=== PATIENT | male | born 1945 ===

== ENCOUNTER 2019-04-26 05:15 | Inpatient (IN) | payer MEDICARE ==
--- NOTE | 2019-04-26 05:27 | ED ---
Complex/Multi-Sys Presentation - HPI Summary HPI Summary: Patient is a 73 y/o M presenting via EMS from [facility] for concerns of sepsis. It is reported that the patient has been with AMS and was abnormally fidgety the evening of 04/25/19. At some point in the night, the patient got out of bed to go to the bathroom, experienced generalized weakness, and fell. During the fall, the patient had ruptured his colonostomy bag. Patient was brought to [place] and was noted to febrile. CT ABD/PEL was done. However, patient's lactic acid was 4.4, there were concerns for sepsis and the patient was transferred to [facility] for further workup. Ostomy change, indwelling catheter were done RESEARCH RN SPEC. However, the patient had no urine output. 1L IVF and Rocephin were administered RESEARCH RN SPEC as well. It is noted that the patient had recently been evaluated at [facility] for sepsis as well. Hx of lymphoma reported. Home medications and allergies are reviewed. - History Of Current Complaint Time Seen by Provider: 04/26/19 05:17 Hx Obtained From: Patient, EMS Onset/Duration: Still Present Timing: Constant Severity Currently: Severe Associated Signs And Symptoms: Positive: Fever - reported, on vitals, temp is 98.7 F, Other - positive - AMS, fidgety, generalized weakness, fall - Allergies/Home Medications Allergies/Adverse Reactions: Allergies Allergy/AdvReac Type Severity Reaction Status Date / Time No Known Allergies Allergy Verified 04/26/19 05:27 PMH/Surg Hx/FS Hx/Imm Hx Sensory History: Denies: Hx Legally Blind, Hx Deafness Opthamlomology History: Denies: Hx Legally Blind EENT History: Denies: Hx Deafness - Family History Known Family History: Negative: Blood Disorder - Social History Alcohol Use: None Substance Use Type: Reports: None Smoking Status (MU): Former Smoker Review of Systems Positive: Fever - reported, on vitals, temp is 98.7 F , Fatigue - generalized weakness Musculoskeletal: Other - positive - fall Neurological: Other - positive - AMS, acting fidgety All Other Systems Reviewed And Are Negative: Yes Physical Exam - Summary Physical Exam Summary: Appearance: Ill-appearing, Well-nourished, lying in bed comfortably Skin: Warm, dry, no obvious rash; There is some inflamed skin below colonostomy area. Eyes: sclera anicteric, no conjunctival pallor ENT: mucous membranes moist, pharynx appears normal Neck: Supple, nontender Respiratory: Clear to auscultation, no signs of respiratory distress Cardiovascular: Tachycardia on vitals; Normal S1, S2. No murmurs. Normal distal pulses in tibial and radial bilaterally. Abdomen: Colonostomy at LLQ; Soft, nontender, normal active bowel sounds present Musculoskeletal: Normal, Strength/ROM Intact Neurological: A&Ox3, awake and alert, seems a bit confused and slow to answer questions. Psychiatric: affect is normal, does not appear anxious or depressed Triage Information Reviewed: Yes Vital Signs Reviewed: Yes Procedures - Sedation Patient Received Moderate/Deep Sedation with Procedure: No Diagnostics - Laboratory Result Diagrams: 04/26/19 23:30 04/26/19 23:30 Lab Statement: Any lab studies that have been ordered have been reviewed, and results considered in the medical decision making process. Re-Evaluation - Re-Evaluation First Eval Re-Evaluation Time: 05:48 Comment: Nurse adjusted inflation of balloon in catheter. Urine output was subsequently obtained. Complex Multi-Symp Course/Dx Course Of Treatment: Patient is a 73 y/o M presenting via EMS from [facility] for concerns of sepsis. It is reported that the patient has been with AMS and was abnormally fidgety the evening of 04/25/19. At some point in the night , the patient got out of bed to go to the bathroom, experienced generalized weakness, and fell. During the fall, the patient had ruptured his colonostomy bag. Patient was brought to [place] and was noted to febrile. CT ABD/PEL was done. However, patient's lactic acid was 4.4, there were concerns for sepsis and the patient was transferred to [facility] for further workup. Ostomy change, indwelling catheter were done RESEARCH RN SPEC. However, the patient had no urine output. 1L IVF and Rocephin were administered RESEARCH RN SPEC as well. It is noted that the patient had recently been evaluated at [facility] for sepsis as well. Hx of lymphoma reported. On physical exam, patient is noted to be ill-appearing and tachycardic. He seems a bit confused and is slow to answer questions. There is a colonostomy bag at [facility] with some inflamed skin below. Patient's case was discussed with Dr. Feng, who accepts the patient for admission. - Diagnoses Provider Diagnoses: Sepsis - Physician Notifications Discussed Care Of Patient With: Reyes Feng Time Discussed With Above Provider: 05:27 Instructed by Provider To: Other - Patient's case was discussed with Dr. Feng , who accepts the patient for admission. Discharge ED - Sign-Out/Discharge Documenting (check all that apply): Patient Departure - admit - Discharge Plan Condition: Fair Disposition: ADMITTED TO [facility] - Billing Disposition and Condition Condition: FAIR Disposition: Admitted to [facility] - Attestation Statements Document Initiated by iH: Yes Documenting Scribe: RACHAEL GORDON Provider For Whom Hi is Documenting (Include Credential): ALANA DODSON MD Scribe Attestation: IRACHAEL, scribed for ALANA DODSON MD on 04/27/19 at 0522. Scribe Documentation Reviewed: Yes Provider Attestation: The documentation as recorded by the RACHAEL montenegro accurately reflects the service I personally performed and the decisions made by me, ALANA DODSON MD Status of Scribe Document: Viewed
[2019-04-26] MEDS ORDERED: Albuterol 2.5 MG/3 ML NEB.SOL* (0.083%) INH PRN (06:04)
[2019-04-26] MEDS ORDERED: Acetaminophen TAB* 325 MG PO PRN (06:04)
[2019-04-26] MEDS ORDERED: Ondansetron INJ* 2 MG/ML VIAL IV PRN (06:04)
[2019-04-26 06:05] LABS: Urine Appearance Cloudy; Urine Bilirubin Negative (Negative); Urine Blood 3+ (Negative); Urine Color Yellow; Urine Glucose Negative (Negative); Urine Ketones Negative (Negative); Urine Nitrite Positive (Negative); Urine Protein Negative (Negative); Urine Specific Gravity 1.009 (1.010-1.030); Urine Urobilinogen Negative (Negative)
[2019-04-26 06:19] LABS: Urine Bacteria 2+ (Absent); Urine Red Blood Cell 3+(>10/hpf) (Absent); Urine White Blood Cell 3+(>20/hpf) (Absent)
[2019-04-26] MEDS: NS 0.9% 1000 ML** 1,000 ML IV SCH ×2 (06:21→08:46)
[2019-04-26 06:27] LABS: Hematocrit 35 % (42-52); Hemoglobin 12.3 g/dL (14.0-18.0); Mean Corpuscular HGB Conc 35 g/dL (31-36); Mean Corpuscular Hemoglobin 36 pg (27-31); Mean Corpuscular Volume 103 fL (80-94); Red Blood Count 3.44 10^6 /uL (4.18-5.48); Red Cell Distribution Width 18 % (10-15); White Blood Count 6.2 10^3/uL (3.5-10.8)
[2019-04-26 06:34] LABS: BUN/Creatinine Ratio 22.4 (8-20); Calcium 7.8 mg/dL (8.6-10.3); EGFR African American 75.1 (>60); EGFR Non-African American 62.1 (>60); Magnesium 1.5 mg/dL (1.9-2.7); Potassium 3.7 mmol/L (3.5-5.0)
[2019-04-26 07:01] LABS: Influenza A Molecular NEGATIVE (Negative); Influenza B Molecular NEGATIVE (Negative)
[2019-04-26 07:04] LABS: ABS Lymphocytes 0.1 10^3/ul (1.0-4.8); Eosinophil % 0.1 %; Lymphocyte % 1.9 %; Mean Platelet Volume 7.2 fL (7.4-10.4); Platelet Count 93 10^3/uL (150-450)
[2019-04-26] MEDS: Enoxaparin(*) 40 MG/0.4 ML SYR SUBCUT SCH (08:58)
[2019-04-26] MEDS: Cefepime 1 GM in Dextrose(*) 1 GM/50 ML BAG IV SCH ×2 (09:01→20:40)
--- NOTE | 2019-04-26 09:44 | HP ---
ADMISSION HISTORY AND PHYSICAL: DATE OF ADMISSION: 04/26/19 PRIMARY CARE PROVIDER: None. HEALTHCARE PROXY: Emergency contact is Tigist Mitchell, , only other living relative is niece, Marga. CODE STATUS: Presumed full. SOURCE OF INFORMATION: History obtained from review of [place] records, discussion with the patient, discussion with Tigist. RELIABILITY: From the patient is poor, from Tigist is fair. CHIEF COMPLAINT: Loss of consciousness. HISTORY OF PRESENT ILLNESS: This is a 73-year-old man who was received in transfer as an ED transfer from [facility]. He had been having uncomfortable tossing and turning and woke and was sitting on the couch. While he was awake, Tigist woke up to go walk the dogs. When she came back, she found to have that he was not making sense. He was garbling his words. He stood up to use the bathroom and dropped and was unable to stand; it is unclear if he lost consciousness. At this point, she activated EMS. There was no tonic -clonic movements that were relayed to this author. The patient had a similar presentation prior to his hospital stay at [facility] from approximately April 06 to for 3 days stay when he again had shaking and fall. Tigist relates the diagnosis was sepsis from UTI as well as a concern for lymphoma. The physician at [facility] apparently wanted to keep him longer; however, this patient was intended on leaving. Tigist relates that he did not leave [facility] ultimately, but was discharged with ciprofloxacin and prednisone. She reports he finished his Cipro course. She is unclear if the prednisone has been finished. He has no follow up with Hematology or Oncology, but was set to have a new primary care physician visit. She reports that he had a Moore catheter placed at [facility]. Reports from the ED here indicate that he arrived at [facility] covered in urine, his Moore bag had displaced as well as his colostomy bag, which has been present for approximately 30 years. Tigist relates that at baseline he is quite active. He walks around town including to the post office and to the grocery store. He lives in a second floor apartment approximately 10 or 12 stairs, which he can ascend carrying groceries without difficulty. At [facility], he received a gram of ceftriaxone and 2 L of fluid prior to his transfer to [facility] ED. PAST MEDICAL HISTORY: Includes colon cancer, status post colectomy and unknown if he received radiation therapy or chemotherapy. Recent presumptive diagnosis of lymphoma, the patient indicated with his chest. Otherwise, denies all other medical history. MEDICATIONS: Prednisone 20 mg a day. ALLERGIES: No known drug allergies. FAMILY HISTORY: Unable to obtain. SOCIAL HISTORY: Quit tobacco at age 42, past alcohol; however, none in many years. He is retired. REVIEW OF SYSTEMS: The patient does indicate he has had a cough. Otherwise, difficult to obtain review of symptoms from the patient at this time. PHYSICAL EXAMINATION GENERAL: He is sitting 40 degrees in bed. He is in no distress, although breathing rapidly. VITAL SIGNS: At 4 a.m. at [facility], blood pressure 132/79, heart rate was 117, respiratory rate was 30 and requiring 6 L oxygen, T-max at 100.9. At [facility], 115/65, heart rate is 116, respiratory rate is 32, T-max 98.7, and 97% on 2 L nasal cannula at the time of my interview. HEENT: His oropharynx is clear. He has dry mucous membranes. Sclerae are anicteric. NECK: Non-elevated JVD. LUNGS: Clear. HEART: He has tachycardic heart rate. No murmurs. ABDOMEN: Soft, nontender, and nondistended. He has a colostomy in place. EXTREMITIES: Warm and well perfused. He has 1+ bilateral lower extremity edema at the ankles. His Moore catheter in place that was changed at [place] although not draining. NEUROLOGIC: At the time of presentation to [facility], he is dysarthric but oriented x3. He moves all extremities. Follows 2-step commands. Cranial nerves II through XII are intact. His sensation is intact. PSYCHIATRIC: He has no apparent anxiety, agitation or depression. DIAGNOSTIC STUDIES/LABORATORY DATA: Data reviewed: Impression, imaging from [place] CT abdomen and pelvis without contrast, impression limited evaluation of solid viscera for laceration without contrast. No hemoperitoneum. Bilateral hydronephrosis perhaps due to bladder outlet obstruction or occluded or clamped Moore catheter. Small pleural and pericardial effusions, splenomegaly, and gastric distention, cholelithiasis, and diverticulosis, bilateral moderate hydronephrosis and hydroureter with perirenal edema, gastric distention and partial colectomy of left mid christa-abdominal ostomy. Chest x-ray: Small right pleural effusion. EKG: Sinus tachycardia, normal axis, normal intervals, good R-wave progression, no ST or T wave changes. Labs reviewed: White blood cell count is 2.0, absolute neutrophils 1890, hemoglobin 13, platelets 107. BUN 24, creatinine 1.3, random glucose 114, lactic acid is 4.4, total bilirubin is 2.5, AST 19, ALT 17, alk phos 139, CK is 19, troponin 0.03, total protein is 2.5, albumin is 2.8. Rapid influenza reportedly obtained, but I see no report. Two sets of blood cultures were obtained in the [facility]. ASSESSMENT AND PLAN: A 73-year-old man with past medical history of remote colon cancer, presumptive diagnosis of lymphoma from unclear data from recent hospital stay at [facility], presenting after a fall, fever, tachycardia, leukopenia, and lactic acidosis, concerning for sepsis. 1. Sepsis. On presentation to [facility], Moore catheter was not draining. Balloon was deflated with brisk diuresis of several hundred milliliters. In conjunction with hydronephrosis and bladder distention, I suspect Moore catheter became nonfunctional leading to urinary tract infection as primary source. Urinalysis is pending at this time. Additionally, recheck influenza given endemic nature as well as fever. Multiple other etiologies and CAT scan including pleural effusions, pericardial effusions as potential source seem less likely. Two sets of blood cultures received at [place], pending growth. Received 2 L of fluid prior to [facility] arrival, 2 additional fluids of 500 cc per hour. Recheck lactic acid at 7 a.m. He was on 20 mg of prednisone at least since the 09 of April, I will continue 20, not hypotensive. We will not increase for stress dose steroids. Change ceftriaxone to cefepime, treating his neutropenic fever, although he is not frankly neutropenic at this time, although he is on steroids. 2. Acute kidney injury, unclear if acute or chronic. I suspect in the setting of dislodged Moore. Fluids as indicated above. Moore now draining. Repeat. 3. Hydronephrosis. Moore nonfunctional, likely will need re-imaging. Check resolution. 4. Lymphoma, pending records from [facility], which we have requested. Additionally, Tigist, his partner if able to obtain or arrive to [facility] will bring our records, which she has already obtained from discharge in preparation for PCP visit. I have not placed a consult at this time for Oncology. 5. DVT prophylaxis. Placed on Lovenox, not currently thrombocytopenic, but careful attention to platelet count. Followup today BMP and CBC, urinalysis, rapid influenza, magnesium all ordered and pending at the time of this dictation. [id number]/[facility] #: [id number] [facility]ALKatie
--- NOTE | 2019-04-26 14:53 | PN ---
Hospitalist Progress Note Date of Service: 04/26/19 Seen and evaluated at bedside.Just admitted a few hours earlier by Dr Feng. Pl see his note for full details. Pt doing better on the floor. Denies any complaints.In no distress. Will follow for any issues.
[2019-04-26 23:38] LABS: ABS Basophils 0.1 10^3/ul (0-0.2); ABS Lymphocytes 0.4 10^3/ul (1.0-4.8); ABS Monocytes 0.2 10^3/ul (0-0.8); ABS Neutrophils 6.3 10^3/ul (1.5-7.7); Eosinophil % 0.3 %; Hematocrit 30 % (42-52); Hemoglobin 10.1 g/dL (14.0-18.0); Lymphocyte % 5.2 %; Mean Corpuscular HGB Conc 34 g/dL (31-36); Mean Corpuscular Hemoglobin 34 pg (27-31); Mean Corpuscular Volume 102 fL (80-94); Mean Platelet Volume 6.7 fL (7.4-10.4); Platelet Count 68 10^3/uL (150-450); Red Blood Count 2.93 10^6 /uL (4.18-5.48); Red Cell Distribution Width 18 % (10-15); White Blood Count 6.9 10^3/uL (3.5-10.8)
[2019-04-26 23:51] LABS: BUN/Creatinine Ratio 23.2 (8-20); Calcium 7.7 mg/dL (8.6-10.3); EGFR African American 90.2 (>60); EGFR Non-African American 74.5 (>60); Potassium 4.1 mmol/L (3.5-5.0)
[2019-04-27] MEDS: Enoxaparin(*) 40 MG/0.4 ML SYR SUBCUT SCH (08:40)
[2019-04-27] MEDS ORDERED: cefTRIAXone(*) 2 GM in NS 0.9% 100 ML* 100 ML IVPB SCH (09:00)
[2019-04-27] MEDS ORDERED: Vancomycin per Pharmacy* NOTE FOLLOW UP PRN (13:49)
[2019-04-27] MEDS ORDERED: Vancomycin(*) 1,250 MG in NS 0.9% 250 ML* 250 ML IVPB ONE (18:00)
--- NOTE | 2019-04-27 18:21 | PN ---
Subjective Date of Service: 04/27/19 Interval History: Pr reports feeling better.Less weak. Blood cultures positive Objective Active Medications: Acetaminophen (Tylenol Tab*) 650 mg PO Q4H PRN PRN Reason: MILD PAIN or TEMP > 100.4 Last Admin: 04/26/19 12:36 Dose: 650 mg Albuterol (Ventolin 2.5 Mg/3 Ml Neb.Niecy*) 2.5 mg INH RT.[id number] AWAKE PRN PRN Reason: sob/wheezing Enoxaparin Sodium (Lovenox(*)) 40 mg SUBCUT Q24H [facility] Last Admin: 04/27/19 08:40 Dose: 40 mg Vancomycin HCl 1,250 mg/ (Sodium Chloride) 250 mls @ 166.667 mls/hr IVPB ONCE ONE Stop: 04/27/19 19:29 Last Admin: 04/27/19 18:09 Dose: 166.667 mls/hr Ondansetron HCl (Zofran Inj*) 4 mg IV Q4H PRN PRN Reason: NAUSEA/VOMITING Pharmacy Consult (Vancomycin Per Pharmacy*) 1 note FOLLOW UP . PRN PRN Reason: PER PROTOCOL Prednisone (Deltasone 20 Mg Tab) 20 mg PO DAILY [facility] Last Admin: 04/27/19 08:41 Dose: 20 mg Vital Signs - 8 hr 04/27/19 04/27/19 11:46 15:07 Temperature 98.4 F 98.8 F Pulse Rate 91 97 Respiratory 20 20 Rate Blood Pressure 113/56 125/61 (mmHg) O2 Sat by Pulse 94 94 Oximetry Oxygen Devices in Use Now: Nasal Cannula Eyes: No Scleral Icterus Ears/Nose/Mouth/Throat: NL Teeth, Lips, Gums Neck: NL Appearance and Movements; NL JVP Respiratory: Symmetrical Chest Expansion and Respiratory Effort Abdominal: NL Sounds; No Tenderness; No Distention, - - ostomy with stool Extremities: No Edema Neurological: Alert and Oriented x 3 Result Diagrams: 04/26/19 23:30 04/26/19 23:30 Microbiology and Other Data: Microbiology 04/26/19 05:57 Urine Culture - Final Urine Assess/Plan/Problems-Billing Assessment: - Patient Problems (1) Sepsis Current Visit: Yes Status: Acute Comment: Was transferred from [facility] Lactate 4.4 there Recd IVF Initially on Ceftriaxone for UTI Pl see Dr Feng h and p Blood culture per pharmacy gram pos cocci poss enteroccus.Checked with micro as well.And growing gram pos cocci eventhough not reported on computer. Started on Vanco today and ceftriaxone stopped for now Further antibiotics based on cx Likely uti as source if confirmed enteroccus (2) UTI (urinary tract infection) Current Visit: Yes Status: Acute Comment: in the setting of non functioning son currently working Bilateral hydronephrosis moderate from bladder outlet obs or clamped son noted on CT abd pelvis done at [facility]. will repeat renal ultrasound to evaluate further for improvement Renal fx improved (3) Hydronephrosis Current Visit: Yes Status: Acute Code(s): N13.30 - UNSPECIFIED HYDRONEPHROSIS SNOMED Code(s): 08901521 Comment: Pl see above (4) Lymphoma Current Visit: Yes Status: Acute Comment: h/o colon ca and colostomy and lymphoma per pt on prednisone 20 mg at home so continued d/w oncology on prednisone plan and further input on the lymphoma as pt not able to provide more information Status and Disposition: pt/ot
[2019-04-28 05:32] LABS: ABS Lymphocytes 0.7 10^3/ul (1.0-4.8); ABS Monocytes 0.3 10^3/ul (0-0.8); ABS Neutrophils 6.1 10^3/ul (1.5-7.7); Eosinophil % 0.2 %; Hematocrit 31 % (42-52); Hemoglobin 10.7 g/dL (14.0-18.0); Lymphocyte % 9.3 %; Mean Corpuscular HGB Conc 35 g/dL (31-36); Mean Corpuscular Hemoglobin 35 pg (27-31); Mean Corpuscular Volume 99 fL (80-94); Mean Platelet Volume 7.8 fL (7.4-10.4); Platelet Count 72 10^3/uL (150-450); Red Blood Count 3.09 10^6 /uL (4.18-5.48); Red Cell Distribution Width 17 % (10-15); White Blood Count 7.1 10^3/uL (3.5-10.8)
[2019-04-28 05:46] LABS: BUN/Creatinine Ratio 28.8 (8-20); Calcium 8.2 mg/dL (8.6-10.3); Magnesium 1.8 mg/dL (1.9-2.7)
[2019-04-28] MEDS: Vancomycin(*) 1,250 MG in NS 0.9% 250 ML* 250 ML IVPB SCH ×2 (05:47→19:41)
[2019-04-28] MEDS: Enoxaparin(*) 40 MG/0.4 ML SYR SUBCUT SCH (07:21)
[2019-04-28] MEDS ORDERED: Anidulafungin* 200 MG in NS 0.9% 250 ML* 200 ML IVPB ONE (12:00)
--- NOTE | 2019-04-28 13:18 | CONS ---
CONSULTATION REPORT: DATE OF CONSULT: 04/28/19 REQUESTING PHYSICIAN: Patsy Cameron. CONSULTING SERVICE: Infectious Disease. REASON FOR CONSULTATION: Bacteremia. IMPRESSION: 1. Enterococcus faecium in 3 of 4 blood culture bottles drawn in the setting of fever and encephalopathy. His mental status is improving, he is afebrile on vancomycin. He has no peripheral stigmata of infective endocarditis. He does have a chronic Moore catheter, which was apparently dysfunctional for some time leading up to his admission this could be a urinary source despite it not being present currently in the urine. To be fair the report is mixed trip, so it could include Enterococcus faecium and joy. He is improving on vancomycin. It is Enterococcus faecium, which can be resistant to vancomycin, however, as he is getting better we will continue the same antibiotic. 2. Joy krusei in 1 of 4 blood culture bottles. No other focal signs or symptoms including no spine or joint symptoms, no vision changes or eye pain or abnormalities on eye exam today. I think endophthalmitis unlikely. Endocarditis a consideration, original source may be urinary as well. 3. Staph epidermidis in 1 of 4 blood culture bottles is more likely a contaminant. 4. Recent corticosteroid use. 5. Some discussion of a lymphoma diagnosis, which he is unable to confirm or deny. 6. We will check a chest x-ray. RECOMMENDATION: Continue vancomycin goal trough 15 to 20. We will add anidulafungin 200 mg now and then 100 mg daily. We will repeat the blood cultures tomorrow. We will obtain a transthoracic echocardiogram. If that is unremarkable, we will obtain a CT of the abdomen and pelvis. Obtain records of his recent hospitalizations at [facility]. HISTORY OF PRESENT ILLNESS: This is a 73-year-old male with recent hospitalization at [facility] for fever and infection. Discharged from there with a Moore catheter and ciprofloxacin. Apparently at some point after finishing the Cipro, he started to feel poorly again and developed more fevers. He was brought to the [facility] ER on 04/26/19 with fever and change in mental status. Blood cultures taken there are now 3 of 4 growing Enterococcus faecium, 1 of 4 growing Staph epidermidis, 1 of 4 growing Joy krusei. His urine culture here was listed as mixed trip, which we will ask the micro lab to workup. He has been on vancomycin here. He is afebrile. He is becoming more lucid and in fact is able to provide some history, which includes a recent prednisone use though he is not sure why he is taking it and is unclear of any lymphoma diagnosis, which has been listed in his records. His other studies here have included a normal white count; a macrocytic anemia; elevated lactic acid, which is improving; urinalysis showing blood, nitrites, leukocyte esterase; influenza PCR negative. He had a dysfunctional Moore. I removed Moore and have that replaced at some point as he travels here. PAST MEDICAL HISTORY: 1. Colon cancer treated with colectomy, colostomy, and chemotherapy in the distant past. 2. Possible diagnosis lymphoma. MEDICATIONS: 1. Taking prednisone 20 mg a day at home. 2. Tylenol as needed. 3. Enoxaparin. 4. Vancomycin 1250 mg every 12 hours. 5. Prednisone 20 mg daily. ALLERGIES: No known drug allergies. FAMILY HISTORY: No recurrent infections. SOCIAL HISTORY: Lives in [place] with his . No travel. No sick contacts. He had been at [facility] about 3 weeks ago for a couple of days. He is a past smoker, lives with his , retired concrete truck driver. REVIEW OF SYSTEMS: All negative except as noted above to 14 point review of systems. PHYSICAL EXAM: Vital Signs: Temperature 36.6, heart rate 80, respiration rate 18, blood pressure 160/75, oxygen saturation 97% on room air. In general, he is awake and nondistressed. Neurologic: He is oriented x3. He follows all commands, answers questions, probably moves all extremities. HEENT: There is no conjunctival hemorrhage. Oropharynx without lesions. He is edentulous. Neck is supple without mass. Heart is regular rate and rhythm without murmurs, rubs, or gallops. Lungs are clear to auscultation bilaterally. Abdomen: Soft , nontender, nondistended. There is no right upper quadrant tenderness. There is some suprapubic tenderness to palpation. There is bowel sounds present. Skin: There is no rash or splinter hemorrhage. Musculoskeletal: There is no spine tenderness to palpation or joint synovitis. : There is Moore catheter present. Lymph Nodes: There is no cervical, supraclavicular, or inguinal axillary or epitrochlear lymphadenopathy. DIAGNOSTIC STUDIES/LAB DATA: Influenza PCR negative. White blood cell count 7, hemoglobin 10, platelets 72, MCV 99 down from 103, creatinine is 0.6. Please see impressions recommendations outlined above that is discussed with Dr. Cameron. Thank you for asking me to see Mr. Chris in consultation. [id number]/[facility] #: [id number] MTDD
--- NOTE | 2019-04-28 14:59 | PN ---
Subjective Date of Service: 04/28/19 Interval History: HOSPITALIST PROGRESS NOTE Patient seen and examined at bedside. Care reviewed and d/w Lindsey Ricardo RN. He offers no complaints today. Feels stronger and worked with PT. Family History: Unchanged from Admission Social History: Unchanged from Admission Past Medical History: Unchanged from Admission Objective Active Medications: Acetaminophen (Tylenol Tab*) 650 mg PO Q4H PRN PRN Reason: MILD PAIN or TEMP > 100.4 Last Admin: 04/26/19 12:36 Dose: 650 mg Albuterol (Ventolin 2.5 Mg/3 Ml Neb.Niecy*) 2.5 mg INH [id number] AWAKE PRN PRN Reason: sob/wheezing Enoxaparin Sodium (Lovenox(*)) 40 mg SUBCUT Q24H [facility] Last Admin: 04/28/19 07:21 Dose: 40 mg Vancomycin HCl 1,250 mg/ (Sodium Chloride) 250 mls @ 166.667 mls/hr IVPB Q12H [facility] Last Admin: 04/28/19 05:47 Dose: 166.667 mls/hr Anidulafungin 200 mg/ Sodium (Chloride) 260 mls @ 65 mls/hr IVPB .LOADING DOSE x 1 ONE Stop: 04/28/19 15:59 Last Admin: 04/28/19 12:07 Dose: 65 mls/hr Anidulafungin 100 mg/ Sodium (Chloride) 130 mls @ 65 mls/hr IVPB Q24H [facility] Ondansetron HCl (Zofran Inj*) 4 mg IV Q4H PRN PRN Reason: NAUSEA/VOMITING Pharmacy Consult (Vancomycin Per Pharmacy*) 1 note FOLLOW UP . PRN PRN Reason: PER PROTOCOL Pharmacy Profile Note (Vancomycin Trough Check) 1 note FOLLOW UP 0530 ONE Stop: 04/29/19 05:31 Prednisone (Deltasone 20 Mg Tab) 20 mg PO DAILY [facility] Last Admin: 04/28/19 07:21 Dose: 20 mg Vital Signs - 8 hr 04/28/19 04/28/19 04/28/19 07:21 07:30 11:07 Temperature 97.3 F 97.9 F Pulse Rate 80 81 Respiratory 18 18 18 Rate Blood Pressure 160/90 159/75 (mmHg) O2 Sat by Pulse 100 97 Oximetry Appearance: Elderly gentleman sitting up in a chair in NAD Eyes: No Scleral Icterus Ears/Nose/Mouth/Throat: Mucous Membranes Moist Neck: Trachea Midline Respiratory: Symmetrical Chest Expansion and Respiratory Effort, Clear to Auscultation Cardiovascular: RRR - Normal S1 and S2 Abdominal: NL Sounds; No Tenderness; No Distention Neurological: Alert and Oriented x 3, NL Muscle Strength and Tone Result Diagrams: 04/28/19 05:10 04/28/19 05:10 Assess/Plan/Problems-Billing Assessment: Mr Chris is a 73yo M with PMH of colon CA s/p colectomy, possible lymphoma, who was transferred from [facility] for sepsis secondary to UTI. - Patient Problems (1) UTI (urinary tract infection) Comment: - In the setting of non functioning son. - Bilateral hydronephrosis moderate from obstruction. - Urine culture grew enterococcus. - Continue Vancomycin. - F/u US shows resolution of hydronephrosis. (2) Bacteremia Comment: - Blood cultures grew Enterococcus (associated with UTI), staph epi ( likely contaminant), and now Joy crusei - ID consult requested. (3) Lymphoma Comment: - Continue prednisone. - Awaiting records from [facility]. (4) DVT prophylaxis Comment: - Lovenox. (5) Full code status Status and Disposition: Inpatient.
--- NOTE | 2019-04-28 17:23 | ECHO ---
*[facility]* [place] [address] Fax #: [phone] Transthoracic Echocardiogram Patient: Obey Chris : 1945 Study Date: 04/28/2019 Age: 73 Gender: M HR: 90 bpm Height: 70 in /177.8 cm BSA: 1.95 m^2 Weight: 169.6 lb /77.1 kg BMI: 24.4 kg/m^2 *Steward/Stewardess Second Class: * Ana Lo [facility] *Referring Physician: * Alfonzo Green *Reading Physician: * Fay Billy MD Indications: Bacteremia. History: Lymphoma. Conclusions Summary: - Left ventricle: The cavity size is below normal. Wall thickness is mildly increased. Systolic function is hyperdynamic. The estimated ejection fraction is 60-65%. - Right ventricle: The cavity size is normal. Wall thickness is mildly increased. Systolic function is low normal. - Mitral valve: The leaflets are mildly thickened, shaggy looking but not clear vegetations, anterior leaflet appears mildly tethered. There is mild regurgitation. - Aortic valve: The valve is trileaflet. The leaflets are mildly thickened. Mild focal calcification involving the noncoronary cusp measuring at 0.4 cm by 0.3 cm. - Tricuspid valve: There is mild-moderate regurgitation. - Pericardium, extracardiac: A trace pericardial effusion is identified posterior to the heart and along the left ventricular free wall. The fluid has no internal echoes. There is no evidence of hemodynamic compromise. - Pulmonary arteries: Systolic pressure is mildly increased. The peak pressure during systole by Doppler is 41.0 mm Hg. - No prior echocardiogram to compare. Recommendations: No clear vegetations, aortic nodule smooth, mitral valve could be sclerosis or vegetation, not optimally seen. Recommend transesophageal echocardiogram if clinically indicated to better image valves for possible endocarditis. Study data: Transthoracic echocardiogram. Procedure: Transthoracic echocardiography was performed. Image quality was fair. Complete 2D, spectral Doppler, and color flow Doppler. Location: Bedside. Patient status: Inpatient. Patient room number: 404. Rhythm: Normal sinus rhythm. Findings Left ventricle: The cavity size is below normal. Wall thickness is mildly increased. Systolic function is hyperdynamic. The estimated ejection fraction is 60-65%. Wall motion is normal; there are no regional wall motion abnormalities. Features are consistent with a pseudonormal left ventricular filling pattern, with concomitant abnormal relaxation and increased filling pressure (grade 2 diastolic dysfunction). Right ventricle: The cavity size is normal. Wall thickness is mildly increased. Systolic function is low normal. Systolic pressure is mildly increased. Left atrium: The atrium is normal in size. Right atrium: The atrium is mildly dilated. Mitral valve: The leaflets are mildly thickened, shaggy looking but not clear vegetations, anterior leaflet appears mildly tethered. There is no evidence of stenosis. There is mild regurgitation. Aortic valve: The valve is trileaflet. The leaflets are mildly thickened. Mild focal calcification involving the noncoronary cusp measuring at 0.4 cm by 0.3 cm. There is no evidence of stenosis. There is no significant regurgitation. Tricuspid valve: The leaflets are normal thickness. There is no evidence of a vegetation. There is no evidence of stenosis. There is mild-moderate regurgitation. Pulmonic valve: The leaflets are normal thickness. There is no evidence of a vegetation. There is no evidence of stenosis. There is trace regurgitation. Aorta: Aortic root: The aortic root is mildly dilated. Ascending aorta: The ascending aorta is appears normal. Aortic arch: The aortic arch is poorly visualized. Pericardium: A trace pericardial effusion is identified posterior to the heart and along the left ventricular free wall. There is no evidence of hemodynamic compromise. Measuring at 0 .4 cm at the papillary level in parasternal short axis, 0.6cm adjacent to the inferolateral wall in apical long axis view, and 0.4cm posterior to left ventricle in subcostal four chamber view. Respiration variations are as follows: Mitral valve 25%, left ventricular outflow tract 1%, and tricuspid valve 3%. Pulmonary arteries: The main pulmonary artery is normal-sized. Systolic pressure is mildly increased. Systemic veins: Inferior vena cava: The vessel is normal in size. There is (>= 50%) respiratory change in the IVC dimension. Measurements Left ventricle Value Ref Right atrium continued Value Ref ALEXANDER, LAX (L) 4.1 cm 4.2 - 5.8 SI dim, ES, A4C (H) 5.6 cm 3.4 - 5.3 ESD, LAX (L) 2.3 cm 2.5 - 4.0 Estimated RAP 3 mm Hg --------- FS, LAX (H) 51 % 25 - 43 PW, ED, LAX (H) 1.1 cm 0.6 - 1.0 Aortic valve Value Ref FS (H) 51 % 25 - 43 Ese diam, ED 2.4 cm --------- PW, ED (H) 1.1 cm 0.6 - 1.0 Peak v, S 1.2 m/sec --------- PW/ID, ED 0.23 VTI, S 29.3 cm --------- E', lat ese, TDI (L) 8.1 cm/sec >=10.0 Mean grad, S 4.0 mm Hg -- ------- E/e', lat ese, 10 Peak grad, S 5.0 mm Hg ----- ---- TDI LVOT/AV, VTI ratio 0.75 --------- E', med ese, TDI (L) 6.5 cm/sec >=7.0 E/e', med ese, 12 Mitral valve Value Ref TDI Peak E 0.79 m/sec --------- E', avg, TDI 7.3 cm/sec Peak A 0.6 m/sec ----- ---- E/e', avg, TDI 11 <=14 Decel time 130 ms -- ------- Peak grad, D 2.5 mm Hg --------- LVOT Value Ref Peak E/A ratio 1.3 --------- Peak kory, S 0.98 m/sec VTI, S 22.0 cm Pulmonic valve Value Ref Mean grad, S 2 mm Hg Peak v, S 0.91 m/sec --------- Peak grad, S 3.0 mm Hg --------- Ventricular septum Value Ref IVS, ED (H) 1.1 cm 0.6 - 1.0 Tricuspid valve Value Ref TR peak v (H) 3.21 m/sec <=2.8 Right ventricle Value Ref Peak RV-RA grad, S 41 mm Hg --------- AW thickness, ED (H) 0.6 cm 0.1 - 0.5 ALEXANDER, LAX 3.4 cm Aortic root Value Ref ALEXANDER minor ax, A4C 3.1 cm 1.9 - 3.5 Root diam 3.8 cm <4.1 mid Pressure, S 44 mm Hg Ascending aorta Value Ref AAo AP diam, S 3.5 cm --------- Left atrium Value Ref AP dim, ES 3.20 cm 3.00 - Pulmonary artery Value Ref 4.00 Pressure, S 41.0 mm Hg --------- ML dim, A4C 4.3 cm SI dim, A4C 4.9 cm Inferior vena cava Value Ref Vol/bsa, ES, 1-p 21 ml/m^2 12 - 37 Diam 1.1 cm --------- A4C Vol/bsa, ES, A/L 31 ml/m^2 16 - 34 Right atrium Value Ref SI dim, ES (H) 5.6 cm 3.4 - 5.3 ML dim, ES, A4C 4.0 cm 2.6 - 4.4 Legend: (L) and (H) domenica values outside specified reference range. Prepared and electronically signed by Fay Billy MD 04/28/2019 17:23
[2019-04-29] MEDS ORDERED: amLODIPine TAB* 5 MG PO ONE ×2 (04:01→18:28)
[2019-04-29] MEDS ORDERED: Vancomycin Trough Check NOTE FOLLOW UP ONE (05:30)
[2019-04-29] MEDS: Vancomycin(*) 1,250 MG in NS 0.9% 250 ML* 250 ML IVPB SCH (06:22)
[2019-04-29] MEDS: Enoxaparin(*) 40 MG/0.4 ML SYR SUBCUT SCH (08:06)
--- NOTE | 2019-04-29 08:52 | PN ---
Progress Note - Progress Note Date of Service: 04/29/19 SOAP: Subjective: CC: bacteremia HPI: 73 year old man with son catheter and Enteroccocal bacteremia and Candidemia. No fever, rash, or diarrhea. Appetite is good. He feels ok. Says he is leaving. Objective: Vital Signs Temp 36.6 C 04/29/19 02:55 Pulse 77 04/29/19 02:55 Resp 16 04/29/19 02:55 BP 178/82 04/29/19 02:55 Pulse Ox 98 04/29/19 02:55 Intake & Output 04/28/19 04/29/19 04/29/19 18:59 06:59 18:59 Intake Total 756 406 240 Output Total 1925 2200 Balance -1169 -1794 240 Intake: IV Fluids 40 NS 40 IVPB 366 ABX - VANCOMYCIN 266 antifungal 100 Oral 756 0 240 Output: Urine 1200 Son 1800 1000 Colostomy 125 Other: # Bowel Movements 0 Gen:awake, no distress Neuro: alert, oriented x3, moves all extremities HEENT: no thrush Heart:Regular, no murmur Lungs:CTA BL Abd:+BS NTND soft Skin: no rash MSK: no spine tenderness or joint synovitis Laboratory Results - last 24 hr 04/29/19 04:53 Vancomycin Trough 14.3 Microbiology 04/26/19 05:57 Urine Culture - Final Urine Assessment: 1. E. faecium bacteremia; micro reports it is VRE, TTE showed abnormal MV with MR, infectious endocarditis not ruled out, otherwise no clear focus. 2. Candidemia; no visual symptoms or other focal abnormality. Polymicrobial bnormality could be related to chronic son catheter dysfunction, but may also have seeded 3. chronic corticosteroid use 4. chronic son catheter Plan: 1. Stop vancomycin, start linezolid 600 mg IV Q12hrs 2. continue anidulafungin 100 mg IV daily 3. STACEY and CT A/P; I discussed this with him and he refuses further testing, plans to leave, understands my concern that he could have a life threatening infection that needs further evaluation. Will check back in with him and Dr Cameron. 35 minutes floor time >50% face to face in counseling regarding need for further testing for invasive infection
[2019-04-29] MEDS: Linezolid 600 MG IVPREMIX(*) 600 MG/300 ML BAG IVPB SCH ×2 (10:38→21:39)
[2019-04-29] MEDS: Anidulafungin* 100 MG in NS 0.9% 100 ML* 100 ML IVPB SCH (13:07)
--- NOTE | 2019-04-29 14:19 | PN ---
Subjective Date of Service: 04/29/19 Interval History: HOSPITALIST PROGRESS NOTE Patient seen and examined at bedside. Care reviewed and d/w Weston Mathis RN. He feels better today. Upset he was told he needs more testing and treatment. Family History: Unchanged from Admission Social History: Unchanged from Admission Past Medical History: Unchanged from Admission Objective Active Medications: Acetaminophen (Tylenol Tab*) 650 mg PO Q4H PRN PRN Reason: MILD PAIN or TEMP > 100.4 Last Admin: 04/26/19 12:36 Dose: 650 mg Albuterol (Ventolin 2.5 Mg/3 Ml Neb.Niecy*) 2.5 mg INH [id number] AWAKE PRN PRN Reason: sob/wheezing Enoxaparin Sodium (Lovenox(*)) 40 mg SUBCUT Q24H [facility] Last Admin: 04/29/19 08:06 Dose: 40 mg Anidulafungin 100 mg/ Sodium (Chloride) 130 mls @ 65 mls/hr IVPB Q24H [facility] Last Admin: 04/29/19 13:07 Dose: 65 mls/hr Linezolid (Zyvox 600 Mg Ivpremix(*)) 600 mg in 300 mls @ 300 mls/hr IVPB Q12H [facility] Last Admin: 04/29/19 10:38 Dose: 300 mls/hr Ondansetron HCl (Zofran Inj*) 4 mg IV Q4H PRN PRN Reason: NAUSEA/VOMITING Prednisone (Deltasone 20 Mg Tab) 20 mg PO DAILY [facility] Last Admin: 04/29/19 08:06 Dose: 20 mg Vital Signs - 8 hr 04/29/19 04/29/19 04/29/19 07:16 08:00 10:45 Temperature 97.4 F 97.8 F Pulse Rate 72 84 Respiratory 19 19 22 Rate Blood Pressure 163/67 150/70 (mmHg) O2 Sat by Pulse 97 98 Oximetry Oxygen Devices in Use Now: None Appearance: Elderly gentleman sitting up in a chair in NAD Eyes: No Scleral Icterus Ears/Nose/Mouth/Throat: Mucous Membranes Moist Neck: Trachea Midline Respiratory: Symmetrical Chest Expansion and Respiratory Effort, Clear to Auscultation Cardiovascular: RRR - Normal S1 and S2 Abdominal: NL Sounds; No Tenderness; No Distention, - - Ostomy in place Neurological: Alert and Oriented x 3, NL Muscle Strength and Tone Result Diagrams: 04/28/19 05:10 04/28/19 05:10 Assess/Plan/Problems-Billing Assessment: Mr Chris is a 73yo M with PMH of colon CA s/p colectomy, possible lymphoma, who was transferred from [facility] for sepsis secondary to UTI. Records from [facility] reviewed: patient was admitted from 04/06 - 04/10/19 with septic shock with urinary retention and UTI. He was also found to have a 1.5cm lung nodule and a mediastinal mass. He was also found to have complete phimosis and required Urology consultation for Son placement. CT chest/abdome showed a 7.9 x 3.1 x 4.7cm encasing mass anterior and middle mediastinal area, splenomegaly, retroperitoneal lymphadenopathy. 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 Patient refused biopsy and left the hospital. He was discharged with Cipro and prednisone to follow up as outpatient with Oncology. - Patient Problems (1) UTI (urinary tract infection) Comment: - In the setting of non functioning son. - Moderate bilateral hydronephrosis from obstruction. - Urine culture grew VRE. - ID in put appreciated - start Linezolid. - F/u US shows resolution of hydronephrosis. (2) Bacteremia Comment: - Blood cultures grew Enterococcus (associated with UTI), staph epi ( likely contaminant), and now Joy crusei - ID consult appreciated. - Echo shows thickened MV, but no definite vegetations - patient initially refused STACEY, but now agreeable. - Continue Linezolide and Anidulafungin. (3) Lymphoma Comment: - Continue prednisone. (4) DVT prophylaxis Comment: - Lovenox. (5) Full code status Status and Disposition: Inpatient.
[2019-04-29] MEDS ORDERED: Naloxone* 0.4 MG/ML 1 ML VIAL ONE (15:24)
[2019-04-29] MEDS ORDERED: Midazolam* 1 MG/ML 5 ML VIAL (5 MG) ONE (15:24)
[2019-04-29] MEDS ORDERED: fentaNYL* 50 MCG/ML 2 ML VIAL (100 MCG VIAL) ONE (15:24)
[2019-04-29] MEDS ORDERED: Flumazenil* 0.1 MG/ML 5 ML MDV ONE (15:25)
[2019-04-29] MEDS ORDERED: Lidocaine 2% VISCOUS* 15 ML UDC ONE (15:25)
--- NOTE | 2019-04-29 17:13 | TEE ---
*[facility]* [place] [address] Fax #: [phone] Transesophageal Echocardiogram Patient: Obey Chris : 1945 Study Date: 04/29/2019 Age: 73 Gender: M HR: 83 bpm Height: 70 in /177.8 cm BSA: 1.95 m^2 Weight: 169.6 lb /77.1 kg BMI: 24.4 kg/m^2 *Commercial Credit Analyst: * Asha Ernst RDCS RN *Referring Physician: * Esha ValderramaReading Physician: * Power Chambers MD Indications: Bacteremia. History: Lymphoma. Risk factors: Former tobacco use. Conclusions Summary: - Left ventricle: The cavity size is normal. Systolic function is normal. - Right ventricle: The cavity size is normal. Systolic function is normal. - Tricuspid valve: There is mild-moderate regurgitation. - Ascending aorta: There is severe atherosclerotic plaque seen in the visualized segments of the aortic arch and descending aorta with some plaque projecting into the lumen 0.8 cm. - Pericardium, extracardiac: There is no significant pericardial effusion. - Pulmonary arteries: Systolic pressure is mildly increased, estimated to be 46 mm Hg. - No echocardiogram evidence of endocarditis. Recommendations: No prior STACEY's available for comparison at time of interpretation. Study data: Diagnostic Transesophageal Echocardiogram Consent: The risks and benefits of the procedure, including alternatives were discussed with the patient and/or their health care electronics parts sales representative and written informed consent was obtained. Procedure: Initial setup: The patient was brought to the laboratory in the fasting state.Intravenous access was obtained. Surface ECG leads, heart rate, heart rhythm, blood pressure measurements, pulse oximetric signals, and mainstream end-tidal CO2 tracings were monitored throughout the procedure. Sedation. Moderate sedation was administered by nursing staff. History and physical as well as labs were reviewed. An oral bite block was inserted for protection of oral dentition. The patient was placed in the left lateral decubitus position. Topical anesthesia was obtained using viscous lidocaine. A transesophageal probe was inserted by the attending trashman without difficulty. Transesophageal echocardiography was performed. The image quality was fair to good, with the best imaging from the transgastric window. All standard views were attempted within the limitations of patient tolerance and safety. Multiple 2D, color flow Doppler and spectral Doppler images were obtained. The transesophageal probe was removed. Location: Procedure room. Patient status: Inpatient. Patient room number: 404. Study completion: The patient tolerated the procedure well. There were no complications. Administered medications: Midazolam 4 mg IV. Fentanyl 50 mcg IV. Rhythm: Normal sinus rhythm. Findings Left ventricle: The cavity size is normal. Systolic function is normal. Right ventricle: The cavity size is normal. Systolic function is normal. Left atrium: The atrium is normal in size. The appendage is of normal size. There is no evidence of a thrombus in the atrial cavity or appendage. Right atrium: The atrium is mildly dilated. Atrial septum: No defect or patent foramen ovale is identified. The bubble study is negative on Image 64. Mitral valve: The leaflets are mildly thickened. The anterior leaflet appears to be mildly tethered. There is a calcified chordae seen. There is no evidence of a vegetation. There is no evidence of stenosis. There is mild regurgitation. Aortic valve: The valve is trileaflet. The leaflets are mildly thickened. Cusp separation is normal. There is no evidence of a vegetation. There is no evidence of stenosis. There is trace regurgitation. Tricuspid valve: The valve is structurally normal. There is no evidence of a vegetation. There is no evidence of stenosis. There is mild-moderate regurgitation. Pulmonic valve: The valve is structurally normal. There is no evidence of a vegetation. There is trace regurgitation. Aorta: Ascending aorta: The ascending aorta is not dilated. There is severe atherosclerotic plaque seen in the visualized segments of the aortic arch and descending aorta with some plaque projecting into the lumen 0.8 cm. The aortic root appears normal in size. Pericardium: There is no significant pericardial effusion. Pulmonary arteries: The main pulmonary artery is normal-sized. Systolic pressure is mildly increased, estimated to be 46 mm Hg. Systemic veins: Inferior vena cava: The vessel is normal in size. Superior vena cava: The vessel is appears normal. Pulmonary veins: Visualization of the pulmonary venous anatomy is incomplete, but a significant abnormality is unlikely. The pulmonary veins that are visualized appear normal. Measurements Aortic valve Value Ref Tricuspid valve Value Ref Nany diam, ED 2.3 cm ---- Peak RV-RA grad, S 38 mm Hg ---- Max TR kory 3.1 m/sec ---- Mitral valve Value Ref Peak E 0.76 m/sec ---- Aortic root Value Ref Peak A 0.67 m/sec ---- Root diam 3.6 cm <4.1 Decel time 229 ms ---- Peak grad, D 2.3 mm Hg ---- Ascending aorta Value Ref Peak E/A ratio 1.1 ---- AAo AP diam, S 3.4 cm ---- Legend: (L) and (H) domenica values outside specified reference range. Prepared and electronically signed by Power Chambers MD 04/29/2019 17:13
[2019-04-30 05:30] LABS: ABS Eosinophils 0.1 10^3/ul (0-0.6); ABS Lymphocytes 1.1 10^3/ul (1.0-4.8); ABS Monocytes 0.3 10^3/ul (0-0.8); ABS Neutrophils 3.9 10^3/ul (1.5-7.7); Eosinophil % 1.2 %; Hematocrit 35 % (42-52); Hemoglobin 12.1 g/dL (14.0-18.0); Lymphocyte % 20.9 %; Mean Corpuscular HGB Conc 35 g/dL (31-36); Mean Corpuscular Hemoglobin 35 pg (27-31); Mean Corpuscular Volume 98 fL (80-94); Mean Platelet Volume 7.4 fL (7.4-10.4); Nucleated Red Blood Cells % 0.5; Platelet Count 97 10^3/uL (150-450); Red Blood Count 3.52 10^6 /uL (4.18-5.48); Red Cell Distribution Width 16 % (10-15); White Blood Count 5.5 10^3/uL (3.5-10.8)
[2019-04-30 05:31] LABS: BUN/Creatinine Ratio 24.1 (8-20); Calcium 8.6 mg/dL (8.6-10.3); EGFR Non-African American 96.7 (>60); Potassium 3.6 mmol/L (3.5-5.0)
[2019-04-30] MEDS: Enoxaparin(*) 40 MG/0.4 ML SYR SUBCUT SCH (08:20)
[2019-04-30] MEDS: amLODIPine TAB* 5 MG PO SCH (08:20)
--- NOTE | 2019-04-30 09:34 | PN ---
Progress Note - Progress Note Date of Service: 04/30/19 SOAP: Subjective: CC: Bacteremia HPI: Mr. Chris is a 73 yo male with PMG significant for colon cancer s/p colectomy and colostomy, and presumed lymphoma; who presented to the hospital with son catheter and Enteroccocal bacteremia and Candidemia. Denies fever, chills, nausea, vomiting, diarrhea, or ABD pain. He is anxious to get home. Objective: Vital Signs - 8 hr 04/30/19 04/30/19 04/30/19 03:20 07:15 08:00 Temperature 98.1 F 98 F Pulse Rate 76 73 Respiratory 20 20 20 Rate Blood Pressure 152/80 155/80 (mmHg) O2 Sat by Pulse 97 98 Oximetry Physical Exam: General: NAD, sitting up on the side of the bed Neurological: Alert and Oriented x4 HEENT: Moist MM, no thrush Cardiovascular: Heart rate regular Respiratory: Lung sounds clear Abdominal: Bowel sounds present; ABD soft, non tender and non distended MSK: No tenderness with palpation of the neck, back or spine Skin: No rash Laboratory Results - last 24 hr 04/30/19 04/30/19 04:30 04:30 WBC 5.5 RBC 3.52 L Hgb 12.1 L Hct 35 L MCV 98 H MCH 35 H MCHC 35 RDW 16 H Plt Count 97 L MPV 7.4 Neut % (Auto) 71.4 Lymph % (Auto) 20.9 Bullitt % (Auto) 6.0 Eos % (Auto) 1.2 Baso % (Auto) 0.5 Absolute Neuts (auto) 3.9 Absolute Lymphs (auto) 1.1 Absolute Monos (auto) 0.3 Absolute Eos (auto) 0.1 Absolute Basos (auto) 0.0 Absolute Nucleated RBC 0.0 Nucleated RBC % 0.5 Sodium 136 Potassium 3.6 Chloride 102 Carbon Dioxide 28 Anion Gap 6 BUN 19 Creatinine 0.79 Est GFR ( Amer) 117.0 Est GFR (Non-Af Amer) 96.7 BUN/Creatinine Ratio 24.1 H Glucose 84 Calcium 8.6 Microbiology 04/29/19 04:47 Aerobic Blood Culture - Preliminary Blood Venous No Growth Day 1 Anaerobic Blood Culture - Preliminary No Growth Day 1 04/29/19 04:53 Aerobic Blood Culture - Preliminary Blood Venous No Growth Day 1 Anaerobic Blood Culture - Preliminary No Growth Day 1 04/26/19 05:57 Urine Culture - Final Urine Assessment: 1. Enterococcus faecium bacteremia. Micro reports shows VRE. TTE showed abnormal MV with MR. Blood cultures from 04/29/19 with no growth on day 1. STACEY yesterday with no signs of endocarditis. Suspect this may be secondary to a urinary catheter dysfunction. 2. Candidemia. STACEY with no signs of endocarditis. Polymicrobial abnormality could be related to chronic urinary catheter dysfunction, but may also have seeded 3. Chronic urinary catheter Plan: Continue Linezolid 600 mg IV Q12hrs and anidulafungin 100 mg IV daily, while in the hospital. Day 2/14 of ABX, switch Linezolid to Daptomycin 500 mg IV daily and continue anidulafungin 100 mg IV daily at discharge. Weekly labs while on IV ABX: CBC, CMP, and CRP. He will need to have a PICC or Midline placed. Followup with ID outpatient in 1-2 weeks.
[2019-04-30] MEDS: Linezolid 600 MG IVPREMIX(*) 600 MG/300 ML BAG IVPB SCH ×2 (09:46→21:41)
[2019-04-30] MEDS: Anidulafungin* 100 MG in NS 0.9% 100 ML* 100 ML IVPB SCH (12:03)
--- NOTE | 2019-04-30 13:25 | PN ---
Subjective Date of Service: 04/30/19 Interval History: HOSPITALIST PROGRESS NOTE Patient seen and examined at bedside. Care reviewed and d/w Stacia Silverman RN. He offers no new complaints today. Anxious for discharge. Family History: Unchanged from Admission Social History: Unchanged from Admission Past Medical History: Unchanged from Admission Objective Active Medications: Acetaminophen (Tylenol Tab*) 650 mg PO Q4H PRN PRN Reason: MILD PAIN or TEMP > 100.4 Last Admin: 04/26/19 12:36 Dose: 650 mg Albuterol (Ventolin 2.5 Mg/3 Ml Neb.Niecy*) 2.5 mg INH [id number] AWAKE PRN PRN Reason: sob/wheezing Amlodipine Besylate (Norvasc Tab*) 5 mg PO DAILY [facility] Last Admin: 04/30/19 08:20 Dose: 5 mg Enoxaparin Sodium (Lovenox(*)) 40 mg SUBCUT Q24H [facility] Last Admin: 04/30/19 08:20 Dose: 40 mg Heparin Sodium (Porcine) (Heparin Flush Picc/Ml/Cvc(*)) 1 - 3 ml FLUSH 0600, 1800 [facility]; Protocol Anidulafungin 100 mg/ Sodium (Chloride) 130 mls @ 65 mls/hr IVPB Q24H [facility] Last Admin: 04/30/19 12:03 Dose: 65 mls/hr Linezolid (Zyvox 600 Mg Ivpremix(*)) 600 mg in 300 mls @ 300 mls/hr IVPB Q12H [facility] Last Admin: 04/30/19 09:46 Dose: 300 mls/hr Ondansetron HCl (Zofran Inj*) 4 mg IV Q4H PRN PRN Reason: NAUSEA/VOMITING Prednisone (Deltasone 20 Mg Tab) 20 mg PO DAILY [facility] Last Admin: 04/30/19 08:20 Dose: 20 mg Vital Signs - 8 hr 04/30/19 04/30/19 04/30/19 07:15 08:00 11:15 Temperature 98 F 97.4 F Pulse Rate 73 80 Respiratory 20 20 20 Rate Blood Pressure 155/80 154/79 (mmHg) O2 Sat by Pulse 98 97 Oximetry Oxygen Devices in Use Now: None Appearance: Elderly gentleman sitting up in bed in NAD Eyes: No Scleral Icterus Ears/Nose/Mouth/Throat: Mucous Membranes Moist Neck: Trachea Midline Respiratory: Symmetrical Chest Expansion and Respiratory Effort, Clear to Auscultation Cardiovascular: RRR - Normal S1 and S2 Abdominal: NL Sounds; No Tenderness; No Distention Neurological: Alert and Oriented x 3, NL Muscle Strength and Tone Result Diagrams: 04/30/19 04:30 04/30/19 04:30 Assess/Plan/Problems-Billing Assessment: Mr Chris is a 73yo M with PMH of colon CA s/p colectomy, possible lymphoma, who was transferred from [facility] for sepsis secondary to UTI. Records from [facility] reviewed: patient was admitted from 04/06 - 04/10/19 with septic shock with urinary retention and UTI. He was also found to have a 1.5cm lung nodule and a mediastinal mass. He was also found to have complete phimosis and required Urology consultation for Son placement. CT chest/abdome showed a 7.9 x 3.1 x 4.7cm encasing mass anterior and middle mediastinal area, splenomegaly, retroperitoneal lymphadenopathy. 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 Patient refused biopsy and left the hospital. He was discharged with Cipro and prednisone to follow up as outpatient with Oncology. - Patient Problems (1) UTI (urinary tract infection) Comment: - In the setting of non functioning son. - Moderate bilateral hydronephrosis from obstruction. - Urine culture grew VRE. - ID in put appreciated - plan to continue Linezolid. - F/u US shows resolution of hydronephrosis. (2) Bacteremia Comment: - Blood cultures grew Enterococcus (associated with UTI), staph epi ( likely contaminant), and now Joy crusei - ID consult appreciated. - Echo shows thickened MV, but no definite vegetations - STACEY negative for vegetations. - Continue Linezolide and Anidulafungin. Will place PICC line and on discharge will change to Daptomycin and Anidulafungin for 2 weeks. (3) Lymphoma Comment: - Continue prednisone. - Oncology consult requested. (4) DVT prophylaxis Comment: - Lovenox. (5) Full code status Status and Disposition: Inpatient.
[2019-05-01] MEDS ORDERED: Vancomycin Trough Check NOTE FOLLOW UP ONE (05:30)
[2019-05-01 05:52] LABS: EGFR African American 122.3 (>60); EGFR Non-African American 101.1 (>60)
[2019-05-01] MEDS: Enoxaparin(*) 40 MG/0.4 ML SYR SUBCUT SCH (08:15)
[2019-05-01] MEDS: amLODIPine TAB* 5 MG PO SCH (08:15)
[2019-05-01] MEDS: Linezolid 600 MG IVPREMIX(*) 600 MG/300 ML BAG IVPB SCH ×2 (10:41→21:50)
[2019-05-01] MEDS: Anidulafungin* 100 MG in NS 0.9% 100 ML* 100 ML IVPB SCH (12:36)
--- NOTE | 2019-05-01 13:16 | PN ---
Subjective Date of Service: 05/01/19 Interval History: HOSPITALIST PROGRESS NOTE Patient seen and examined at bedside. Care reviewed and d/w Alice Minor RN. He feels well, offers no complaints today. Family History: Unchanged from Admission Social History: Unchanged from Admission Past Medical History: Unchanged from Admission Objective Active Medications: Acetaminophen (Tylenol Tab*) 650 mg PO Q4H PRN PRN Reason: MILD PAIN or TEMP > 100.4 Last Admin: 04/26/19 12:36 Dose: 650 mg Albuterol (Ventolin 2.5 Mg/3 Ml Neb.Niecy*) 2.5 mg INH [id number] AWAKE PRN PRN Reason: sob/wheezing Amlodipine Besylate (Norvasc Tab*) 5 mg PO DAILY [facility] Last Admin: 05/01/19 08:15 Dose: 5 mg Enoxaparin Sodium (Lovenox(*)) 40 mg SUBCUT Q24H [facility] Last Admin: 05/01/19 08:15 Dose: 40 mg Heparin Sodium (Porcine) (Heparin Flush Picc/Ml/Cvc(*)) 1 - 3 ml FLUSH 0600, 1800 [facility]; Protocol Last Admin: 05/01/19 06:29 Dose: Not Given Anidulafungin 100 mg/ Sodium (Chloride) 130 mls @ 65 mls/hr IVPB Q24H [facility] Last Admin: 05/01/19 12:36 Dose: 65 mls/hr Linezolid (Zyvox 600 Mg Ivpremix(*)) 600 mg in 300 mls @ 300 mls/hr IVPB Q12H [facility] Last Admin: 05/01/19 10:41 Dose: 300 mls/hr Ondansetron HCl (Zofran Inj*) 4 mg IV Q4H PRN PRN Reason: NAUSEA/VOMITING Prednisone (Deltasone 20 Mg Tab) 20 mg PO DAILY [facility] Last Admin: 05/01/19 08:15 Dose: 20 mg Vital Signs - 8 hr 05/01/19 05/01/19 05/01/19 07:15 08:00 11:03 Temperature 97.8 F 97.8 F Pulse Rate 70 78 Respiratory 15 18 17 Rate Blood Pressure 134/74 127/70 (mmHg) O2 Sat by Pulse 97 98 Oximetry Oxygen Devices in Use Now: None Appearance: Elderly gentleman sitting up in bed in NAD Eyes: No Scleral Icterus Ears/Nose/Mouth/Throat: Mucous Membranes Moist Neck: Trachea Midline Respiratory: Symmetrical Chest Expansion and Respiratory Effort, Clear to Auscultation Cardiovascular: NL Sounds; No Murmurs; No JVD, RRR Neurological: Alert and Oriented x 3, NL Muscle Strength and Tone Result Diagrams: 04/30/19 04:30 05/01/19 05:10 Assess/Plan/Problems-Billing Assessment: Mr Chris is a 73yo M with PMH of colon CA s/p colectomy, possible lymphoma, who was transferred from [facility] for sepsis secondary to UTI. Records from [facility] reviewed: patient was admitted from 04/06 - 04/10/19 with septic shock with urinary retention and UTI. He was also found to have a 1.5cm lung nodule and a mediastinal mass. He was also found to have complete phimosis and required Urology consultation for Son placement. CT chest/abdome showed a 7.9 x 3.1 x 4.7cm encasing mass anterior and middle mediastinal area, splenomegaly, retroperitoneal lymphadenopathy. 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 Patient refused biopsy and left the hospital. He was discharged with Cipro and prednisone to follow up as outpatient with Oncology. - Patient Problems (1) UTI (urinary tract infection) Comment: - In the setting of non functioning son. - Moderate bilateral hydronephrosis from obstruction resolved on f/u US. - Urine culture grew VRE. - ID in put appreciated - plan to continue Linezolid. (2) Bacteremia Comment: - Blood cultures grew Enterococcus (associated with UTI), staph epi ( likely contaminant), and now Joy crusei - ID consult appreciated. - Echo shows thickened MV, but no definite vegetations - STACEY negative for vegetations. - Continue Linezolide and Anidulafungin. Placed PICC line and on discharge will change to Daptomycin and Anidulafungin for 2 weeks. (3) Lymphoma Comment: - Continue prednisone. - Oncology consult requested. (4) DVT prophylaxis Comment: - Lovenox. (5) Full code status Status and Disposition: Inpatient.
[2019-05-02] MEDS: Enoxaparin(*) 40 MG/0.4 ML SYR SUBCUT SCH (07:22)
[2019-05-02] MEDS: amLODIPine TAB* 5 MG PO SCH (07:23)
[2019-05-02] MEDS: Linezolid 600 MG IVPREMIX(*) 600 MG/300 ML BAG IVPB SCH ×2 (09:35→21:32)
[2019-05-02] MEDS: Anidulafungin* 100 MG in NS 0.9% 100 ML* 100 ML IVPB SCH (11:42)
--- NOTE | 2019-05-02 12:50 | PN ---
Subjective Date of Service: 05/02/19 Interval History: HOSPITALIST PROGRESS NOTE Patient seen and examined at bedside. Care reviewed and d/w Lindsey Ricardo RN. He offers no new complaints today, anxious for discharge. Family History: Unchanged from Admission Social History: Unchanged from Admission Past Medical History: Unchanged from Admission Objective Active Medications: Acetaminophen (Tylenol Tab*) 650 mg PO Q4H PRN PRN Reason: MILD PAIN or TEMP > 100.4 Last Admin: 04/26/19 12:36 Dose: 650 mg Albuterol (Ventolin 2.5 Mg/3 Ml Neb.Niecy*) 2.5 mg INH [id number] AWAKE PRN PRN Reason: sob/wheezing Amlodipine Besylate (Norvasc Tab*) [address] [facility] Last Admin: 05/02/19 07:23 Dose: 5 mg Enoxaparin Sodium (Lovenox(*)) [address] [facility] Last Admin: 05/02/19 07:22 Dose: 40 mg Heparin Sodium (Porcine) (Heparin Flush Picc/Ml/Cvc(*)) 1 - 3 ml FLUSH 0600, 1800 [facility]; Protocol Last Admin: 05/02/19 06:22 Dose: 1 ml Anidulafungin 100 mg/ Sodium (Chloride) 130 mls @ 65 mls/hr IVPB Q24H [facility] Last Admin: 05/02/19 11:42 Dose: 65 mls/hr Linezolid (Zyvox 600 Mg Ivpremix(*)) 600 mg in 300 mls @ 300 mls/hr IVPB Q12H [facility] Last Admin: 05/02/19 09:35 Dose: 300 mls/hr Ondansetron HCl (Zofran Inj*) 4 mg IV Q4H PRN PRN Reason: NAUSEA/VOMITING Prednisone (Deltasone 20 Mg Tab) [address] [facility] Last Admin: 05/02/19 07:23 Dose: 20 mg Vital Signs - 8 hr 05/02/19 05/02/19 05/02/19 07:06 07:27 11:08 Temperature 97.6 F 97.5 F Pulse Rate 74 82 Respiratory 17 17 18 Rate Blood Pressure 144/80 140/68 (mmHg) O2 Sat by Pulse 99 95 Oximetry Oxygen Devices in Use Now: None Appearance: Elderly gentleman with a disheveled appearance, sitting up in bed in NAD Eyes: No Scleral Icterus Ears/Nose/Mouth/Throat: Mucous Membranes Moist Neck: Trachea Midline Respiratory: Symmetrical Chest Expansion and Respiratory Effort, Clear to Auscultation Cardiovascular: RRR - Normal S1 and S2 Abdominal: NL Sounds; No Tenderness; No Distention Neurological: Alert and Oriented x 3, NL Muscle Strength and Tone Result Diagrams: 04/30/19 04:30 05/01/19 05:10 Assess/Plan/Problems-Billing Assessment: Mr Chris is a 73yo M with PMH of colon CA s/p colectomy, possible lymphoma, who was transferred from [facility] for sepsis secondary to UTI. Records from [facility] reviewed: patient was admitted from 04/06 - 04/10/19 with septic shock with urinary retention and UTI. He was also found to have a 1.5cm lung nodule and a mediastinal mass. He was also found to have complete phimosis and required Urology consultation for Son placement. CT chest/abdome showed a 7.9 x 3.1 x 4.7cm encasing mass anterior and middle mediastinal area, splenomegaly, retroperitoneal lymphadenopathy. 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 Patient refused biopsy and left the hospital. He was discharged with Cipro and prednisone to follow up as outpatient with Oncology. - Patient Problems (1) UTI (urinary tract infection) Comment: - In the setting of non functioning son. - Moderate bilateral hydronephrosis from obstruction resolved on f/u US. - Urine culture grew VRE. - ID in put appreciated - plan to continue Linezolid and transition to Daptomycin as outptient. (2) Bacteremia Comment: - Blood cultures grew Enterococcus (associated with UTI), staph epi ( likely contaminant), and Joy crusei - ID consult appreciated. - Echo shows thickened MV, but no definite vegetations - STACEY negative for vegetations. - F/u blood cultures show no growth so far. - Continue Linezolide and Anidulafungin. Placed PICC line and on discharge will change to Daptomycin and Anidulafungin for 10 more days. (3) Lymphoma Comment: - Continue prednisone. - Oncology consult requested. (4) DVT prophylaxis Comment: - Lovenox. (5) Full code status Status and Disposition: Inpatient. Anticipate d/c to [facility] in AM.
--- NOTE | 2019-05-02 21:26 | DS ---
CC: Dr. Landa; Dr. Reynolds; [facility].* DISCHARGE SUMMARY: DATE OF ADMISSION: 04/26/19 POSSIBLE DATE OF DISCHARGE: 05/03/19 The patient does not have a PCP at this time, but he will have an appointment at the [facility]. DISCHARGE DIAGNOSES: 1. Urinary tract infection, Moore catheter related, present on admission. 2. Vancomycin-resistant enterococcus septicemia. 3. Joy krusei candidemia. SECONDARY DIAGNOSES: 1. Possible lymphoma. 2. Colon cancer, status post colectomy. MEDICATION LIST: 1. Acetaminophen 650 mg p.o. q.4 hours p.r.n. pain or fever. 2. Albuterol 2.5 mg inhaled q.4 hours while awake as needed for shortness of breath and wheezing. 3. Amlodipine 5 mg p.o. daily. 4. Lovenox 5 mg subcutaneous daily. 5. Heparin flush to midline 1 mL b.i.d. 6. Prednisone 20 mg p.o. daily. New medications: 1. Anidulafungin 100 mg IV daily for 10 days. 2. Daptomycin 500 mg IV daily for 10 days. HOSPITAL COURSE: Mr. Chris is a 73-year-old male with a past medical history as stated above, who was initially admitted to [facility] from 04/06/19 to with septic shock secondary to UTI associated with urinary retention. During that admission, he was also found to have a 1.5 cm lung nodule, mediastinal adenopathy, and hemolytic anemia with a tentative diagnosis of lymphoma. At that time, the patient refused biopsy and he was discharged to follow up with Oncology as outpatient, but this did not happen as he presented to [facility] on 04/26/19 with complaints . The impression is that the patient's Moore catheter was malfunctioning causing hydronephrosis and a flare-up of his urinary tract infection. He was admitted, started on antibiotics, and culture was done at [facility], showed VRE and Joy krusei in his blood cultures. Repeat while in the hospital was negative. He had a transthoracic echocardiogram that showed ejection fraction 60% to 65% with thickening of the mitral valve, but no clear vegetation. He underwent a transesophageal echocardiogram that showed no vegetation. Repeat blood cultures were negative. The patient was seen in consultation by Infectious Disease, Dr. Landa, and his recommendation was to complete 10 more days of daptomycin and anidulafungin as outpatient. The patient is medically stable to be discharged to [facility] to complete his treatment. The patient was seen in consultation by Oncology (Dr. Reynolds), and at this time, the patient still refuses biopsy, but he is amenable with oncology followup as outpatient after he is done with his antibiotics. The patient's Moore catheter was fixed in the emergency room and the impression at [facility] was that the patient's obstruction was caused by phimosis, and he will need followup with Urology as an outpatient when he is done with his treatment. PHYSICAL EXAMINATION: Vital Signs: Temperature 97.3, heart rate is 86, respiratory rate is 18, oxygen saturation 97% on room air, and blood pressure is 148/76. General: The patient is an elderly gentleman lying in bed, in no acute distress. CVS: S1 and S2. Regular rate and rhythm. Chest: Breath sounds present bilateral with no added sounds. Abdomen: Soft, nontender, bowel sounds are present. The patient has a functioning colostomy. Extremities: No edema. Neuro: He is alert and oriented x3, able to move all 4 extremities. DIET: Regular diet. ACTIVITY: As tolerated. DISPOSITION: To [facility]. CONDITION AT THE TIME OF DISCHARGE: Fair. STATUS WHILE IN THE HOSPITAL: Inpatient. Please keep in mind this is a summarized version of this patient's hospital stay. If you need more information , please feel free to call me at [phone] or please obtain full medical records. TIME SPENT: Approximately 45 minutes was spent to complete this discharge. [id number]/CPS #: [id number] [facility] SYSTEMKatie
[2019-05-03] MEDS: Enoxaparin(*) 40 MG/0.4 ML SYR SUBCUT SCH (07:12)
[2019-05-03] MEDS: amLODIPine TAB* 5 MG PO SCH (07:12)
[2019-05-03 07:18] VITALS: BP 148/79
--- NOTE | 2019-05-03 09:01 | PN ---
Progress Note - Progress Note Date of Service: 05/03/19 SOAP: Subjective: CC: bacteremia HPI: 73 year old man with son catheter and Enteroccocal bacteremia and Candidemia. He feels well, no problems with RUE PICC. No back or joint pain. No fever, rash, or diarrhea. Vision is fine. Objective: Vital Signs Temp 36.4 C 05/03/19 07:12 Pulse 78 05/03/19 07:12 Resp 16 05/03/19 07:17 BP 148/79 05/03/19 07:12 Pulse Ox 98 05/03/19 07:12 Intake & Output 05/02/19 05/03/19 05/03/19 18:59 06:59 18:59 Intake Total 1230 300 240 Output Total 650 945 Balance 580 -645 240 Intake: IVPB 440 antifungal 140 inezolid 300 Oral 790 300 240 Output: Son 650 945 Other: # Bowel Movements 0 Gen:awake, no distress HEENT: no thrush Heart:Regular, no murmur Lungs:CTA BL Abd:+BS NTND soft Skin: no rash MSK: no spine tenderness or joint synovitis Microbiology 04/29/19 04:47 Blood Venous Aerobic Blood Culture - Preliminary No Growth Day 4 04/29/19 04:47 Blood Venous Anaerobic Blood Culture - Preliminary No Growth Day 4 04/29/19 04:53 Blood Venous Aerobic Blood Culture - Preliminary No Growth Day 4 04/29/19 04:53 Blood Venous Anaerobic Blood Culture - Preliminary No Growth Day 4 Assessment: 1. E. faecium bacteremia; VRE, TTE showed abnormal MV with MR, STACEY negative. Due to son catheter dysfunction, cleared before antibiotics that treat VRE were started. 2. Candidemia; no visual symptoms or other focal abnormality. Polymicrobial bnormality could be related to chronic son catheter dysfunction, but may also have seeded 3. chronic corticosteroid use for suspected lymphoma 4. chronic son catheter Plan: 1. Daptomycin 500 mg IV daily and anidulafungin 100 mg IV daily infusions to continue at [facility], day 09/01. Weekly cbc, cmp, crp, ck.
[2019-05-03] MEDS: Linezolid 600 MG IVPREMIX(*) 600 MG/300 ML BAG IVPB SCH (09:42)
[2019-05-03] MEDS: Anidulafungin* 100 MG in NS 0.9% 100 ML* 100 ML IVPB SCH (10:27)
== END 2019-05-03 11:29 | DRG 698 ==
LOC: ED 05:15 → MED 06:04
PROVIDERS: ADMIT Internal Medicine; ATTEND Internal Medicine
PROC: B246ZZ4 Ultrasonography of Right and Left Heart, Transesophageal (ICD-10-PCS; principal; 2019-04-29 14:30)
PROC: 05HY33Z Insertion of Infusion Device into Upper Vein, Percutaneous Approach (ICD-10-PCS; 2019-04-30)
DX: T83.511A Infection and inflammatory reaction due to indwelling urethral catheter, initial encounter (principal); A41.81 Sepsis due to Enterococcus; B37.7 Candidal sepsis; G93.40 Encephalopathy, unspecified; N17.9 Acute kidney failure, unspecified; E87.2 Acidosis; J90 Pleural effusion, not elsewhere classified; I31.3 Pericardial effusion (noninflammatory); N13.30 Unspecified hydronephrosis; C85.90 Non-Hodgkin lymphoma, unspecified, unspecified site; N13.4 Hydroureter; Z16.21 Resistance to vancomycin; D70.9 Neutropenia, unspecified; N39.0 Urinary tract infection, site not specified; B95.2 Enterococcus as the cause of diseases classified elsewhere; N32.0 Bladder-neck obstruction; B37.9 Candidiasis, unspecified; R33.9 Retention of urine, unspecified; D53.9 Nutritional anemia, unspecified; Z93.3 Colostomy status; Z85.038 Personal history of other malignant neoplasm of large intestine; Z79.52 Long term (current) use of systemic steroids; Z87.891 Personal history of nicotine dependence
CPT/HCPCS: 36415; 76770; 80048; 80202; 81003; 81015; 82565; 83605; 83735; 84520; 85025; 85060; 87040; 87086; 93306; 93312; 93325; 99156; 99157; 99284; A9270-GY; J0348; J0692; J0696; J1650; J2020; J2250; J2310; J3010; J3370; J7512